=== PATIENT | male | born 1990 | race Caucasian/White ===

== ENCOUNTER 2017-06-23 12:37 | Emergency (ER) | payer MEDICAID ==
[2017-06-23 12:48] VITALS: BP 149/84
[2017-06-23] MEDS ORDERED: Colchicine 0.6 MG Tab PO ONE (13:26)
--- NOTE | 2017-06-23 13:34 | EDM.PDOC ---
ED HPI GENERAL MEDICAL PROBLEM - General Chief Complaint: Lower Extremity Injury/Pain Stated Complaint: GOUT Time Seen by Provider: 06/23/17 13:28 Source of Information: Reports: Patient History Limitations: Reports: No Limitations - History of Present Illness INITIAL COMMENTS - FREE TEXT/NARRATIVE: pt arrived with pain in the left great toe, He has a history of recurrent gout. [facility] is not willing to fill the perscription for colchine without preauthorization. Onset: Other ( started last nite. ) Duration: Hour(s):, Getting Worse Location: Reports: Lower Extremity, Left Associated Symptoms: Reports: No Other Symptoms - Related Data Allergies Allergy/AdvReac Type Severity Reaction Status Date / Time No Known Allergies Allergy Verified 11/08/15 19:39 Home Meds: Home Meds Ibuprofen 600 mg PO QID PRN 10/24/14 [History] Allopurinol [Zyloprim] 100 mg PO DAILY 03/21/15 [History] Sertraline [Zoloft] 50 mg PO DAILY 03/22/15 [History] Past Medical History Other Gastrointestinal History: Last BM 11-30pm, Abd girth 52" Psychiatric History: Reports: Depression Endocrine/Metabolic History: Reports: Obesity/BMI 30+ - Infectious Disease History Infectious Disease History: Reports: Chicken Pox - Past Surgical History GI Surgical History: Reports: Cholecystectomy Social & Family History - Tobacco Use Smoking Status *Q: Current Every Day Smoker Years of Tobacco use: 16 Packs/Tins Daily: 1 Used Tobacco, but Quit: No Second Hand Smoke Exposure: Yes - Alcohol Use Days Per Week of Alcohol Use: 0 - Recreational Drug Use Recreational Drug Use: No Review of Systems - Review of Systems Review Of Systems: See Below Constitutional: Reports: No Symptoms Eyes: Reports: No Symptoms Ears: Reports: No Symptoms Nose: Reports: No Symptoms Mouth/Throat: Reports: No Symptoms Respiratory: Reports: No Symptoms Cardiovascular: Reports: No Symptoms GI/Abdominal: Reports: No Symptoms Genitourinary: Reports: No Symptoms Musculoskeletal: Reports: Other (painful left great toe. ) ED EXAM, GENERAL - Physical Exam Exam: See Below Free Text/Narrative:: pt has a red swollen left great toe. Exam Limited By: No Limitations General Appearance: Alert Ears: Normal TMs Extremities: Other ( left great toe is red and hot. It is very tender. ) Course - Vital Signs Last Recorded V/S: Last Vital Signs Temp 34.5 C L 06/23/17 12:56 Pulse 74 06/23/17 12:56 Resp 16 06/23/17 12:56 BP 149/84 H 06/23/17 12:56 Pulse Ox 98 06/23/17 12:56 - Orders/Labs/Meds Orders: Active Orders 24 hr Category Date Time Status Colchicine [Colcrys] Med 06/23/17 13:26 Once 0.6 mg PO ONETIME ONE - Re-Assessments/Exams Free Text/Narrative Re-Assessment/Exam: 06/23/17 13:32 pt was given 1 colchine in ER Departure - Departure Time of Disposition: 13:33 Disposition: Home, Self-Care 01 Condition: Fair Clinical Impression: Gouty arthritis of left great toe - Discharge Information Referrals: PCP,None [Primary Care Provider] - Additional Instructions: cool pack toe, indocin 50mg tid for the next 3 days with food. In the future since this is a drug requiring preauthorization keep them on hand - My Orders Last 24 Hours: My Active Orders 06/23/17 13:26 Colchicine [Colcrys] 0.6 mg PO ONETIME ONE - Assessment/Plan Last 24 Hours: My Active Orders 06/23/17 13:26 Colchicine [Colcrys] 0.6 mg PO ONETIME ONE
== END 2017-06-23 13:41 | disposition home or self-care (01) ==
LOC: JP.ED 12:37
DX: M10.9 Gout, unspecified (principal); F17.210 Nicotine dependence, cigarettes, uncomplicated; Z79.899 Other long term (current) drug therapy
CPT/HCPCS: 99283; A9270